=== PATIENT | female | born 1995 | race Caucasian/White ===

== ENCOUNTER 2020-08-08 03:40 | Emergency (ER) | payer OTHER, MEDICAID, SELFPAY ==
--- NOTE | ~2020-08-08 | XR_ITS ---
EXAMINATION: XR chest 1V portable 08/08/2020 04:40 INDICATION: Cough with chest pain PROCEDURE: AP portable chest COMPARISON: No prior studies for comparison. FINDINGS: The lungs are clear. The cardiomediastinal silhouette is within normal limits. There are no pleural effusions. There is no pneumothorax suspected. IMPRESSION: 1: NO ACUTE CARDIOPULMONARY DISEASE. Reviewed, dictated and finalized at location A.
[2020-08-08 03:44] VITALS: BP 131/86; PULSE 107; RESP 18; TEMP 36.5; O2SAT 98
--- NOTE | 2020-08-08 04:01 | ED.GENADULT ---
HPI - General Adult General Chief complaint: Upper Respiratory Infection Stated complaint: cough, congestion, headache Time Seen by Provider: 08/08/20 03:50 History of Present Illness HPI narrative: Patient a 24-year-old female that presents to the emergency department with chief complaint of cough runny nose sore throat chest discomfort body aches generalized malaise. Patient reports this been going on for about 4 to 5 days reports that it hurts whenever she coughs. Patient reports that she has a difficult time talking due to the overall illness. Patient was seen in urgent care today and had a rapid Covid test that was negative. Review of Systems Review of Systems: Narrative: A 10 system review of systems was completed on the patient and is negative except for what is stated in the HPI. Nursing and ancillary documentation was reviewed. Exam Narrative: Exam Narrative: GENERAL: Well-appearing, well-nourished, and in no acute distress. HEAD: Normocephalic, atraumatic. EYES: PERRLA and EOMI. ENT: Nares clear, no rhinorrhea or epistaxis. Mucous membranes moist. NECK: Supple. CHEST: Clear to auscultation. No respiratory distress. HEART: Regular rate and rhythm. No murmur heard. Normal peripheral pulses. ABDOMEN: Soft, nontender, nondistended, normal active bowel sounds. EXTREMITIES: Normal range of motion. No edema. SKIN: Warm, dry, no rash. NEURO: No focal deficits. Alert and oriented x3. PSYCH: Normal mood and affect. Course Vital Signs Vital signs: Vital Signs Temperature 36.5 C 08/08/20 03:44 Pulse Rate 107 H 08/08/20 03:44 Respiratory Rate 18 08/08/20 03:44 Blood Pressure 131/86 08/08/20 03:44 Pulse Oximetry 98 08/08/20 03:44 Temperature 36.5 C 08/08/20 03:44 Pulse Rate 107 H 08/08/20 03:44 Respiratory Rate 18 08/08/20 03:44 Blood Pressure 131/86 08/08/20 03:44 Pulse Oximetry 98 08/08/20 04:30 Medical Decision Making Vital Signs Vital Signs: Vital Signs Temperature 36.5 C 08/08/20 03:44 Pulse Rate 107 H 08/08/20 03:44 Respiratory Rate 18 08/08/20 03:44 Blood Pressure 131/86 08/08/20 03:44 Pulse Oximetry 98 08/08/20 03:44 Temperature 36.5 C 08/08/20 03:44 Pulse Rate 107 H 08/08/20 03:44 Respiratory Rate 18 08/08/20 03:44 Blood Pressure 131/86 08/08/20 03:44 Pulse Oximetry 98 08/08/20 04:30 Lab Data Labs: Lab Results 08/08/20 Range/Units 04:08 SARS-CoV-2 RNA (RT-PCR) Pending Influenza A Screen Negative Reference Range: Negative Influenza B Screen Negative Reference Range: Negative Strep Screen Presumptive Negative *(Reference Range: Negative)* Discharge Plan Discharge Clinical Impression: Upper respiratory infection Qualifiers: URI type: unspecified URI Qualified Code(s): J06.9 - Acute upper respiratory infection, unspecified Patient Disposition: Home, Self-Care Condition: Stable Instructions: Antibiotic Form, Upper Respiratory Infection (ED) Prescriptions: New benzonatate 200 mg capsule 200 mg PO TID PRN (Reason: cough) Qty: 21 RF: 0 albuterol sulfate [ProAir HFA] 90 mcg/actuation HFA aerosol inhaler 2 puff inhalation QID PRN (Reason: shortness of breath or wheezing) Qty: 8.5 RF: 0 Follow-up/Referrals: Abbie Chen [Other] Stand Alone Forms: Work/School Release IP Time of Disposition: 05:14
[2020-08-08] MEDS: ALBUTEROL SULFATE (*SP) INHALER 2 PUFF INHALATION (04:14)
[2020-08-08 04:30] VITALS: O2SAT 98
[2020-08-08 05:25] VITALS: BP 129/89; PULSE 99; RESP 20; O2SAT 100
[2020-08-08 18:07] LABS: SARS-CoV-2 RNA PCR Negative
== END 2020-08-08 05:25 | disposition home or self-care (01) ==
PROVIDERS: Emergency Provider Emergency Medicine
DX: J06.9 Acute upper respiratory infection, unspecified (principal); Z20.822 Contact with and (suspected) exposure to COVID-19
CPT/HCPCS: 71045; 87081; 87804; 87880; 99283; A9270; C9803; U0003; U0005